=== PATIENT | female | born 1985 | race Caucasian/White ===

== ENCOUNTER 2022-01-22 16:38 | Emergency (ER) | payer MEDICAID ==
[~2022-01-22] VITALS: Ht 167.6 cm; Wt 80.0 kg
[2022-01-22 16:42] VITALS: BP 132/56
[2022-01-22] MEDS ORDERED: PREDNISONE 20MG TABLET PO STA (17:58)
[2022-01-22] MEDS ORDERED: ALBUTEROL (0.083%) 2.5MG/3ML NEB HHN STA (17:58)
[2022-01-22] MEDS ORDERED: IPRATROPIUM BROMIDE (0.02%) 0.5MG/2.5ML NEB HHN STA (17:58)
[2022-01-22] MEDS ORDERED: P50 MT (20:51)
[2022-01-22] MEDS ORDERED: AZIT250T12 MT (20:51)
[2022-01-22] MEDS ORDERED: ALBU6.7H15 INH (20:51)
[2022-01-22] MEDS ORDERED: PROM5SYR MT (21:06)
== END 2022-01-22 21:13 | disposition home or self-care (01) ==
LOC: ER 16:38
DX: J45.909 Unspecified asthma, uncomplicated (principal); I10 Essential (primary) hypertension; F99 Mental disorder, not otherwise specified; Z88.0 Allergy status to penicillin
CPT/HCPCS: 71045; 93005; 99283

== ENCOUNTER 2023-10-16 07:25 | Emergency (ER) | payer OTHER, MEDICAID ==
[~2023-10-16] VITALS: Ht 170.2 cm; Wt 104.3 kg
[~2023-10-16 07:25] MED LIST: ALBU6.7H15 INH; AZIT250T12 MT; P50 MT; PROM5SYR MT
[2023-10-16 07:42] VITALS: BP 174/97; TEMP 100.4
[2023-10-16] MEDS ORDERED: IPRATROPIUM BROMIDE (0.02%) 0.5MG/2.5ML NEB HHN STA (08:27)
[2023-10-16] MEDS ORDERED: PREDNISONE 20MG TABLET PO STA (08:27)
[2023-10-16] MEDS ORDERED: ALBUTEROL (0.083%) 2.5MG/3ML NEB HHN STA (08:27)
[2023-10-16 09:07] VITALS: PULSE 99; RESP 20; O2SAT 96
[2023-10-16] MEDS ORDERED: PREDNISONE 20MG TABLET PO SCH (10:45)
[2023-10-16] MEDS ORDERED: ALBU6.7H15 INH (11:08)
[2023-10-16] MEDS ORDERED: P20 MT (11:08)
== END 2023-10-16 11:43 | disposition home or self-care (01) ==
LOC: ER 08:10
DX: J45.901 Unspecified asthma with (acute) exacerbation (principal); I10 Essential (primary) hypertension; Z88.0 Allergy status to penicillin
CPT/HCPCS: 94644; 99285; J7512; Z7610 ×3

== ENCOUNTER 2023-11-06 00:06 | Emergency (ER) | payer MEDICAID, OTHER ==
[~2023-11-06] VITALS: Ht 177.8 cm; Wt 90.0 kg
[~2023-11-06 00:06] MED LIST changes: +P20 MT
[2023-11-06 00:13] VITALS: BP 166/81; TEMP 98.7; O2SAT 97
[2023-11-06] MEDS ORDERED: PREDNISONE 20MG TABLET PO ONE (00:30)
[2023-11-06] MEDS ORDERED: IPRATROPIUM/ALBUTEROL 0.5-3(2.5)MG/3ML NEB HHN ONE (00:30)
[2023-11-06] MEDS ORDERED: P20 MT (00:59)
[2023-11-06] MEDS ORDERED: ALBU6.7H15 INH (00:59)
[2023-11-06 02:35] VITALS: PULSE 88; RESP 20
[2023-11-06] MEDS ORDERED: IPRATROPIUM/ALBUTEROL 0.5-3(2.5)MG/3ML NEB HHN NR (02:45)
== END 2023-11-06 04:01 | disposition home or self-care (01) ==
LOC: ER 00:25
DX: J45.901 Unspecified asthma with (acute) exacerbation (principal); I10 Essential (primary) hypertension; Z88.0 Allergy status to penicillin
CPT/HCPCS: 94640; 99283; J7512; Z7610 ×3

== ENCOUNTER 2023-12-28 15:29 | Emergency (ER) | payer OTHER, MEDICAID ==
[~2023-12-28] VITALS: Ht 170.2 cm; Wt 91.0 kg
[2023-12-28] MEDS ORDERED: METHYLPREDNISOLONE SOD SUCC 40MG VIAL IV ONE (16:00)
[2023-12-28 16:26] LABS: HEMATOCRIT. 46.4 % (36.0-48.0); HEMOGLOBIN. 15.1 g/dL (12.0-16.0); MEAN CORPUSCULAR HEMOGLOBIN 28.5 pg (28.0-32.0); MEAN CORPUSCULAR HGB CONC 32.6 g/dL (31.0-37.0); MEAN CORPUSCULAR VOLUME 87.4 fL (81.0-99.0); MEAN PLATELET VOLUME 7.8 fl (7.4-10.4); PLATELET 343 x1000/uL (130-400); RED BLOOD CELL COUNT 5.31 mill/uL (4.2-5.4); RED CELL DISTRIBUTION WIDTH 13.9 % (11.6-14.6); WHITE BLOOD COUNT 10.1 x1000/uL (4.5-11.0)
[2023-12-28 16:30] LABS: DIFFERENTIAL COMMENT 1
[2023-12-28 16:41] LABS: ALANINE AMINOTRANSFERASE 33 IU/L (10-49); ALBUMIN 4.4 g/dL (3.2-4.8); ASPARTATE AMINOTRANSFERASE 27 IU/L (<34); BILIRUBIN TOTAL 0.5 mg/dL (0.1-1.0); CALCIUM 8.8 mg/dL (8.7-10.4); CARBON DIOXIDE 24 mEq/L (21-32); CHLORIDE 109 mEq/L (98-107); CREATININE 0.7 mg/dL (0.6-1.0); GLUCOSE 109 mg/dL (70-105); POTASSIUM 3.2 mEq/L (3.5-5.1); PROTEIN TOTAL 7.6 g/dL (6.0-8.3); SODIUM 139 mEq/L (136-145); UREA NITROGEN BLOOD 10 mg/dL (9-23)
[2023-12-28 16:44] LABS: TROPONIN I HIGH SENSITIVITY < 4 ng/L (3.0-34)
[2023-12-28] MEDS: IPRATROPIUM/ALBUTEROL 0.5-3(2.5)MG/3ML NEB HHN ONE (17:08)
[2023-12-28] MEDS: METHYLPREDNISOLONE SOD SUCC 125MG/2ML (ACT-O-VIAL) IV NR (17:11)
[2023-12-28 17:13] LABS: PLATELET ESTIMATE NORMAL
[2023-12-28 17:20] VITALS: PULSE 83; RESP 18; O2SAT 98
[2023-12-28] MEDS: MAGNESIUM 2 G PREMIX 50 ML IV ONE (18:31)
[2023-12-28] MEDS: ALBUTEROL (0.5%) 2.5MG/0.5ML NEB HHN ONE (18:55)
[2023-12-28 19:05] VITALS: PULSE 82; RESP 16; O2SAT 98
[2023-12-28] MEDS ORDERED: TOPUD MT (20:52)
[2023-12-28] MEDS ORDERED: ALBU6.7H15 INH (20:52)
[2023-12-28] MEDS ORDERED: DEXT30SU17 MT (20:52)
[2023-12-28] MEDS ORDERED: P50 MT (20:52)
[2023-12-28 21:09] VITALS: BP 140/70; PULSE 100; RESP 20; TEMP 96.1
== END 2023-12-28 21:11 | disposition home or self-care (01) ==
LOC: ER 15:29
DX: J45.901 Unspecified asthma with (acute) exacerbation (principal); F41.9 Anxiety disorder, unspecified; F32.A Depression, unspecified; I10 Essential (primary) hypertension; Z88.0 Allergy status to penicillin; Z20.822 Contact with and (suspected) exposure to COVID-19
CPT/HCPCS: 80053; 83880; 85025; 87420; 84484; 87804 ×2; 36415; 71045; 94640; 93005; 96365; 96375; 99285; 87426; J3475; J2930; Z7610 ×8; J2920

== ENCOUNTER 2024-07-15 23:19 | Emergency (ER) | payer MEDICAID, OTHER ==
[~2024-07-15 23:19] MED LIST changes: +DEXT30SU17 MT; +TOPUD MT
[2024-07-16 00:49] LABS: HEMATOCRIT. 48.6 % (36.0-48.0); HEMOGLOBIN. 16.1 g/dL (12.0-16.0); MEAN CORPUSCULAR HEMOGLOBIN 29.3 pg (28.0-32.0); MEAN CORPUSCULAR HGB CONC 33.2 g/dL (31.0-37.0); MEAN CORPUSCULAR VOLUME 88.5 fL (81.0-99.0); MEAN PLATELET VOLUME 7.7 fl (7.4-10.4); PLATELET 350 x1000/uL (130-400); RED CELL DISTRIBUTION WIDTH 14.5 % (11.6-14.6); WHITE BLOOD COUNT 11.2 x1000/uL (4.5-11.0)
[2024-07-16 00:51] LABS: DIFFERENTIAL COMMENT 1
[2024-07-16 00:52] LABS: CHLORIDE 107 mEq/L (98-107); SODIUM 139 mEq/L (136-145)
[2024-07-16 00:53] LABS: CARBON DIOXIDE 25 mEq/L (21-32)
[2024-07-16 00:54] LABS: CALCIUM 9.2 mg/dL (8.7-10.4)
[2024-07-16 00:58] LABS: CREATININE 0.7 mg/dL (0.6-1.0); GLUCOSE 121 mg/dL (70-105)
[2024-07-16 00:59] LABS: UREA NITROGEN BLOOD 6 mg/dL (9-23)
[2024-07-16 01:00] LABS: ALANINE AMINOTRANSFERASE 27 IU/L (10-49); ALBUMIN 4.5 g/dL (3.2-4.8); ASPARTATE AMINOTRANSFERASE 20 IU/L (<34)
[2024-07-16 01:01] LABS: BILIRUBIN TOTAL 0.5 mg/dL (0.1-1.0); PROTEIN TOTAL 7.5 g/dL (6.0-8.3)
[2024-07-16] MEDS: METHYLPREDNISOLONE SOD SUCC 125MG/2ML (ACT-O-VIAL) IV STA (01:07)
[2024-07-16] MEDS: MAGNESIUM 2 G PREMIX 50 ML IV ONE (01:10)
[2024-07-16 01:16] VITALS: PULSE 93; RESP 22; O2SAT 96
[2024-07-16] MEDS: ALBUTEROL (0.083%) 2.5MG/3ML NEB HHN STA (01:16)
[2024-07-16] MEDS: IPRATROPIUM BROMIDE (0.02%) 0.5MG/2.5ML NEB HHN STA (01:16)
[2024-07-16 01:28] VITALS: TEMP 38.22528
[2024-07-16 01:48] LABS: PLATELET ESTIMATE NORMAL
[2024-07-16] MEDS ORDERED: P20 MT (04:07)
[2024-07-16] MEDS ORDERED: ALBU90AE INH (04:07)
[2024-07-16 04:23] VITALS: BP 135/82; PULSE 80; RESP 18; O2SAT 100
== END 2024-07-16 04:23 | disposition home or self-care (01) ==
LOC: ER 23:19
DX: J45.901 Unspecified asthma with (acute) exacerbation (principal); I10 Essential (primary) hypertension; F41.9 Anxiety disorder, unspecified; F32.9 Major depressive disorder, single episode, unspecified; Z88.0 Allergy status to penicillin; Z79.899 Other long term (current) drug therapy
CPT/HCPCS: 36415; 71045; 99285; 80053; 85025; 94644; 96365; 96375; J3475; J2919; Z7610 ×2; 94640

== ENCOUNTER 2024-07-17 23:16 | Emergency (ER) | payer SELFPAY ==
[~2024-07-17] VITALS: Ht 170.2 cm; Wt 100.0 kg
[~2024-07-17 23:16] MED LIST changes: +ALBU90AE INH
[2024-07-17 23:23] VITALS: TEMP 98.2; O2SAT 90
[2024-07-18] MEDS: SODIUM CHLORIDE 0.9% 1,000 ML IV ONE (00:51)
[2024-07-18] MEDS: LORAZEPAM 2MG/ML INJ IV ONE (00:51)
[2024-07-18 01:11] LABS: CHLORIDE 104 mEq/L (98-107); POTASSIUM 3.7 mEq/L (3.5-5.1); SODIUM 137 mEq/L (136-145)
[2024-07-18 01:12] LABS: CALCIUM 9.1 mg/dL (8.7-10.4); CARBON DIOXIDE 27 mEq/L (21-32)
[2024-07-18 01:17] LABS: CREATININE 0.7 mg/dL (0.6-1.0); GLUCOSE 112 mg/dL (70-105); UREA NITROGEN BLOOD 11 mg/dL (9-23)
[2024-07-18 01:18] LABS: TROPONIN I HIGH SENSITIVITY 5 ng/L (3.0-34)
[2024-07-18 01:38] LABS: BASOPHILS % 0.5 % (0.0-2.0); EOSINOPHILS % 0.1 % (0.0-5.0); HEMATOCRIT. 47.9 % (36.0-48.0); HEMOGLOBIN. 15.6 g/dL (12.0-16.0); LYMPHOCYTES % 10.7 % (20.0-50.0); MEAN CORPUSCULAR HEMOGLOBIN 28.4 pg (28.0-32.0); MEAN CORPUSCULAR HGB CONC 32.5 g/dL (31.0-37.0); MEAN CORPUSCULAR VOLUME 87.5 fL (81.0-99.0); MEAN PLATELET VOLUME 8.1 fl (7.4-10.4); MONOCYTES % 8.3 % (2.0-8.0); NEUTROPHILS % 80.4 % (40.0-76.0); PLATELET 351 x1000/uL (130-400); RED BLOOD CELL COUNT 5.48 mill/uL (4.2-5.4); RED CELL DISTRIBUTION WIDTH 14.4 % (11.6-14.6); WHITE BLOOD COUNT 9.3 x1000/uL (4.5-11.0)
[2024-07-18 02:30] VITALS: BP 149/83; PULSE 119; RESP 25; O2SAT 94
== END 2024-07-18 02:35 | disposition home or self-care (01) ==
LOC: ER 23:16
DX: F41.9 Anxiety disorder, unspecified (principal); J45.909 Unspecified asthma, uncomplicated; F41.0 Panic disorder [episodic paroxysmal anxiety]; R00.2 Palpitations; F32.9 Major depressive disorder, single episode, unspecified; I10 Essential (primary) hypertension; Z88.0 Allergy status to penicillin; Z79.899 Other long term (current) drug therapy
CPT/HCPCS: 36415; 71045; 99284; 80048; 85025; 84484; 96361; 96374; J7030; J2060; Z7610